=== PATIENT | male | born 1960 | race Caucasian/White ===

== ENCOUNTER → 2024-05-06 10:10 | Outpatient (REF) | payer OTHER, SELFPAY | LOC: RAD 10:10 | PROVIDERS: ATTENDING PHYSICIAN Emergency Medicine | DX: E11.69 Type 2 diabetes mellitus with other specified complication (principal); I10 Essential (primary) hypertension; E78.5 Hyperlipidemia, unspecified | CPT/HCPCS: 75571 ==

== ENCOUNTER → 2024-07-01 12:45 | Outpatient (REF) | payer OTHER, SELFPAY | LOC: RCS 12:45 | PROVIDERS: ATTENDING PHYSICIAN Internal Medicine Cardiovascular Disease; FAMILY PHYSICIAN Emergency Medicine | DX: Z01.818 Encounter for other preprocedural examination (principal) | CPT/HCPCS: 93306 ==

== ENCOUNTER → 2024-07-06 07:33 | Outpatient (REF) | payer OTHER, SELFPAY | LOC: RCS 07:33 | PROVIDERS: ATTENDING PHYSICIAN Internal Medicine Cardiovascular Disease; FAMILY PHYSICIAN Emergency Medicine | DX: Z01.818 Encounter for other preprocedural examination (principal) | CPT/HCPCS: 78452; 93017; A9500 ==